=== PATIENT | female | born 1990 | race African-American/Black ===

== ENCOUNTER 2017-04-04 13:43 | Emergency (ER) | payer OTHER ==
[~2017-04-04] VITALS: Ht 167.6 cm; Wt 56.8 kg
[2017-04-04 13:48] VITALS: BP 120/76
[2017-04-04 15:44] LABS: ADD MIUA? YES; BILIRUBIN NEGATIVE; BLOOD NEGATIVE; COLOR YELLOW ((YELLOW)); GLUCOSE (STRIP) NEGATIVE; KETONES 80; LEUKOCYTES NEGATIVE; NITRITE NEGATIVE; PROTEIN (STRIP) 30; SPECIFIC GRAVITY 1.023 (1.000-1.030)
[2017-04-04 15:52] LABS: BACTERIA RARE /HPF; EPITHELIAL CELLS 1+ /HPF; MUCUS 3+ /LPF; RED BLOOD CELLS 0-5 /HPF (0-5); WHITE BLOOD CELLS 0-5 /HPF (0-5)
== END 2017-04-04 16:30 | disposition home or self-care (01) ==
LOC: EME 13:43
PROVIDERS: Physician Assistant
DX: J06.9 Acute upper respiratory infection, unspecified (principal); B34.9 Viral infection, unspecified
CPT/HCPCS: 81003; 87651 90; 99281; 99284